=== PATIENT | female | born 1985 | race Caucasian/White ===

== ENCOUNTER 2018-02-26 23:43 | Inpatient (IN) | payer BC ==
[2018-02-27] MEDS ORDERED: LACTATED RINGER'S 1,000 ML IV (00:13)
[2018-02-27] MEDS ORDERED: CARBOPROST 250 MCG INJ IM (00:30)
[2018-02-27] MEDS ORDERED: METHYLERGONOVINE 0.2 MG INJ IM (00:30)
[2018-02-27] MEDS ORDERED: OXYTOCIN 30 UNITS/LR 500 ML IV ×2 (00:30)
[2018-02-27] MEDS ORDERED: IBUPROFEN 600 MG TAB PO (00:30)
[2018-02-27] MEDS ORDERED: MISOPROSTOL 200 MCG TAB PR (00:30)
[2018-02-27 00:45] LABS: ADD MAN DIFF? NO
[2018-02-27 00:50] LABS: BASOPHILS % 0.2 % (0.0-2.0); HEMOGLOBIN 13.4 g/dl (12.0-16.0); LYMPHOCYTES # 1.4 10^3/ul (0.8-2.9); LYMPHOCYTES % 9.7 % (15.0-51.0); MEAN CORPUSCULAR HEMOGLOBIN 28.7 pg (29.0-33.0); MEAN CORPUSCULAR HGB CONC 34.4 g/dl (32.0-37.0); MEAN CORPUSCULAR VOLUME 83.5 fl (82.0-101.0); MEAN PLATELET VOLUME 9.9 fl (7.4-10.4); MONOCYTE # 0.5 10^3/ul (0.3-0.9); NEUTROPHIL # 12.9 10^3/ul (1.6-7.5); NEUTROPHILS % 86.6 % (39.0-77.0); PLATELET COUNT 354 10^3/UL (140-415); RED BLOOD COUNT 4.67 10^6/ul (4.20-5.40); RED CELL DISTRIBUTION WIDTH 13.2 % (11.5-14.5)
[2018-02-27 00:50] LABS: WHITE BLOOD COUNT 14.9 10^3/ul (4.8-10.8)
[2018-02-27] MEDS: LACTATED RINGER'S 1,000 ML IV* ×5 (00:54→21:31)
[2018-02-27 01:07] LABS: INR 0.87; PROTIME 11.9 Sec (11.9-14.9); PT RATIO 0.9
[2018-02-27 01:08] LABS: PARTIAL THROMBOPLASTIN TIME 29.4 Sec (23.0-35.0)
[2018-02-27] MEDS ORDERED: BUTORPHANOL 2 MG INJ (01:14)
[2018-02-27] MEDS ORDERED: FENTAnyl 2MCG/ML-ROPIV 0.2% 100 ML (01:18)
[2018-02-27] MEDS: BUTORPHANOL 2 MG INJ IV (01:32)
[2018-02-27] MEDS: CLINDAMYCIN 900 MG/D5W (PMX) 50 ML IVPB ×2 (01:32→21:54)
[2018-02-27 01:46] LABS: HEPATITIS B SURFACE ANTIGEN NEGATIVE (NEGATIVE)
[2018-02-27] MEDS ORDERED: DIPHENHYDRAMINE 50 MG INJ IV (02:00)
[2018-02-27] MEDS ORDERED: ONDANSETRON 4 MG INJ IV (02:00)
[2018-02-27] MEDS ORDERED: NALOXONE (0.4 MG/ML) INJ IV (02:00)
[2018-02-27] MEDS: FENTAnyl 2MCG/ML-ROPIV 0.2% 100 ML BAG EPI ×4 (02:16→21:47)
[2018-02-27 15:00] LABS: RAPID PLASMA REAGIN NONREACTIVE (NR)
[2018-02-27] MEDS: OXYTOCIN 30 UNITS/LR 500 ML IV (19:30)
[2018-02-27] MEDS: ACETAMINOPHEN 325 MG TAB PO (21:53)
[2018-02-28] MEDS ORDERED: LIDOCAINE 0.5% (SDV) 50 ML INJ (01:39)
[2018-02-28] MEDS: LIDOCAINE 1% (MPF) 30 ML INJ INJ (01:54)
[2018-02-28] MEDS: OXYTOCIN 30 UNITS/LR 500 ML IV ×2 (02:03→07:25)
[2018-02-28] MEDS ORDERED: BENZOCAINE 20% 56 ML SPRAY TOP (02:30)
[2018-02-28] MEDS ORDERED: CARBOPROST 250 MCG INJ IM (02:30)
[2018-02-28] MEDS ORDERED: MISOPROSTOL 200 MCG TAB PR (02:30)
[2018-02-28] MEDS ORDERED: LANOLIN 7 GM TUBE TOP (02:30)
[2018-02-28] MEDS ORDERED: OXYTOCIN 30 UNITS/LR 500 ML IV (02:30)
[2018-02-28] MEDS ORDERED: METHYLERGONOVINE 0.2 MG INJ IM (02:30)
[2018-02-28] MEDS: SERTRALINE 50 MG TAB PO ×2 (05:37→23:02)
[2018-02-28] MEDS: IBUPROFEN 600 MG TAB PO ×4 (05:37→23:49)
[2018-02-28] MEDS: DIPHENHYDRAMINE 50 MG CAP PO ×2 (05:38→23:01)
[2018-02-28] MEDS: WITCH HAZEL/GLYCERIN PAD PR (07:25)
[2018-02-28] MEDS: LACTATED RINGER'S 1,000 ML IV* ×3 (10:24→18:24)
[2018-02-28] MEDS: LACTATED RINGER'S 500 ML IV (11:30)
[2018-03-01] MEDS: LACTATED RINGER'S 1,000 ML IV* ×3 (02:24→18:24)
[2018-03-01] MEDS: IBUPROFEN 600 MG TAB PO ×4 (06:16→23:52)
[2018-03-01 06:37] LABS: ADD MAN DIFF? NO
[2018-03-01 06:40] LABS: BASOPHIL # 0.1 10^3/ul (0.0-0.1); BASOPHILS % 0.5 % (0.0-2.0); EOSINOPHILS # 0.2 10^3/ul (0.0-0.5); EOSINOPHILS % 1.3 % (0.0-7.0); HEMATOCRIT 30.8 % (37.0-47.0); HEMOGLOBIN 10.2 g/dl (12.0-16.0); LYMPHOCYTES # 3.7 10^3/ul (0.8-2.9); LYMPHOCYTES % 26.1 % (15.0-51.0); MEAN CORPUSCULAR HEMOGLOBIN 28.7 pg (29.0-33.0); MEAN CORPUSCULAR HGB CONC 33.1 g/dl (32.0-37.0); MEAN CORPUSCULAR VOLUME 86.5 fl (82.0-101.0); MEAN PLATELET VOLUME 9.5 fl (7.4-10.4); MONOCYTE # 0.8 10^3/ul (0.3-0.9); MONOCYTES % 5.6 % (0.0-11.0); NEUTROPHIL # 9.3 10^3/ul (1.6-7.5); NEUTROPHILS % 65.9 % (39.0-77.0); PLATELET COUNT 273 10^3/UL (140-415); RED BLOOD COUNT 3.56 10^6/ul (4.20-5.40); RED CELL DISTRIBUTION WIDTH 14.2 % (11.5-14.5)
[2018-03-01 06:40] LABS: WHITE BLOOD COUNT 14.1 10^3/ul (4.8-10.8)
[2018-03-01] MEDS ORDERED: SERTRALINE 50 MG TAB PO (09:00)
[2018-03-01] MEDS: SERTRALINE 50 MG TAB PO ×2 (10:35→23:52)
[2018-03-01] MEDS: BETHANECHOL 25 MG TAB PO ×2 (13:04→21:53)
[2018-03-01] MEDS ORDERED: LIDOCAINE 2% JELLY 30 ML TOP (15:30)
[2018-03-01] MEDS: LIDOCAINE 2% JELLY 5 ML TOP (15:44)
[2018-03-01] MEDS: DIPHENHYDRAMINE 50 MG CAP PO (21:53)
[2018-03-01] MEDS: NITROFURANTOIN (SR) 100 MG CAP PO (21:53)
[2018-03-02] MEDS: LACTATED RINGER'S 1,000 ML IV* ×3 (02:24→18:24)
[2018-03-02] MEDS: IBUPROFEN 600 MG TAB PO ×4 (06:03→23:57)
[2018-03-02] MEDS: ALPRAZOLAM 1 MG TAB PO (07:55)
[2018-03-02] MEDS: NITROFURANTOIN (SR) 100 MG CAP PO ×2 (09:59→22:59)
[2018-03-02] MEDS: SERTRALINE 50 MG TAB PO ×2 (09:59→22:59)
[2018-03-02] MEDS: BETHANECHOL 25 MG TAB PO ×3 (10:03→23:02)
[2018-03-02] MEDS: DIPHTH/TET/ACEL PERTUSS (ADULT) 0.5 ML VIAL IM* (11:22)
[2018-03-02] MEDS: HYDROCODONE/APAP (5/325) TAB PO (16:19)
[2018-03-03] MEDS: LACTATED RINGER'S 1,000 ML IV* (02:24)
[2018-03-03] MEDS: IBUPROFEN 600 MG TAB PO (09:01)
[2018-03-03] MEDS: SERTRALINE 50 MG TAB PO (09:02)
[2018-03-03] MEDS: NITROFURANTOIN (SR) 100 MG CAP PO (09:02)
[2018-03-03] MEDS: BETHANECHOL 25 MG TAB PO (09:02)
== END 2018-03-03 14:00 | disposition home or self-care (01) | DRG 807 ==
LOC: OBT 23:43 → PP1 02-28 03:56 → L-D 23:45
PROVIDERS: Obstetrics & Gynecology
PROC: 10D07Z6 Extraction of Products of Conception, Vacuum, Via Natural or Artificial Opening (ICD-10-PCS; principal; 2018-02-27)
PROC: 0KQM0ZZ Repair Perineum Muscle, Open Approach (ICD-10-PCS; 2018-02-27)
PROC: 3E033VJ Introduction of Other Hormone into Peripheral Vein, Percutaneous Approach (ICD-10-PCS; 2018-02-27)
DX: O69.81X0 Labor and delivery complicated by cord around neck, without compression, not applicable or unspecified (principal); Z37.0 Single live birth; O70.1 Second degree perineal laceration during delivery; Z3A.39 39 weeks gestation of pregnancy
CPT/HCPCS: 62319; 85025; 85610; 85730; 86592; 86850; 86900; 86901; 87340; 90715; 99464